=== PATIENT | female | born 1960 | race Caucasian/White ===

== ENCOUNTER 2025-03-15 20:44 | Emergency (ER) | payer BC, SELFPAY ==
[2025-03-15 20:47] VITALS: BP 138/78
[2025-03-15 21:25] VITALS: BMI 25.0
[2025-03-15 21:30] VITALS: BP 127/77
[2025-03-15 21:46] LABS: % Basophils 0.9 % (0-2); % Eosinophils 2.2 % (0-6); % Immature Granulocytes 0.2 % (0-0.5); % Monocytes 8.6 % (1.7-9.3); % Neutrophils 55.1 % (42.2-75.2); Absolute Eosinophils 0.1 10^3/uL (0-0.7); Absolute Lymphocytes 1.5 10^3/uL (1.2-3.4); Absolute Monocytes 0.4 10^3/uL (0.1-0.6); Absolute Neutrophils 2.5 10^3/uL (1.4-6.5); Hematocrit 34.1 % (37.0-47.0); Hemoglobin 11.9 g/dL (12.0-16.0); Mean Corp Hgb Conc. 34.9 g/dL (33.0-37.0); Mean Corpuscular Hgb 31.2 pg (27.0-31.0); Mean Corpuscular Volume 89.5 fL (81.0-99.0); Nucleated Red Blood Cells % 0 %; Platelet Count 243 10^3/uL (130-400); Red Blood Cell Count 3.81 10^6/uL (4.20-5.40); Red Cell Dist. Width 12.2 % (11.5-14.5); White Blood Cell Count 4.5 10^3/uL (4.8-10.8)
--- NOTE | 2025-03-15 21:47 | ED.GENMED ---
History of Present Illness
General
Chief Complaint: Chest Pain
Source: patient
Exam Limitations: none
Time Seen by Provider: 03/15/25 21:44
History of Present Illness
History of Present Illness:
See MDM
Past History
Past History
ED Past Medical History: HTN
ED Past Surgical History: None
Social History
Tobacco: Non-smoker
Alcohol: None
Phy Exam
Physical Exam
Physical Exam:
See MDM
Scores
Heart Score for Chest Pain Patients
STEMI patient?: No
History: Moderately Suspicious
ECG: Nonspecific Repolarization
Age: >/= 65 years
Risk Factors: 1 or 2 Risk Factors
Troponin: </= Normal Limit
Heart Score for Chest Pain Patients: 5
Heart Score Risk: 20.3% MACE over next 6 weeks
Course
Orders/Labs/Results
Orders:
Orders
03/15/25 20:46
ECG [Electrocardiogram (*1)] Urgent
Reason for Study: Chest Pain
EKG- Treatment ONCE
03/15/25 21:21
Cardiac Monitoring- Treatment ONCE
Pulse Ox/spot Check [RESP] Urgent
Quantity: 1
Special Instructions: ON ROOM AIR
03/15/25 21:39
Basic Metabolic Panel Urgent
Complete Blood Count/With Diff Urgent
03/15/25 21:46
CR Chest - 2 Views Urgent
Comment:
Reason For Exam: intermittent chest pain
03/15/25 22:18
Troponin I Urgent
Abnormal Lab Results
03/15/25
21:39
WBC 4.5 L 10^3/uL
(4.8-10.8)
RBC 3.81 L 10^6/uL
(4.20-5.40)
Hgb 11.9 L g/dL
(12.0-16.0)
Hct 34.1 L %
(37.0-47.0)
MCH 31.2 H pg
(27.0-31.0)
Chloride 109 H mmol/L
(98-107)
BUN 26 H mg/dl
(7-17)
Glucose 100 H mg/dl
(70-99)
03/15/25 21:39
03/15/25 21:39
Vital Signs
Initial and Last Documented VS:
Initial Vital Signs
Temp Pulse Resp BP Pulse Ox
98.3 F 80 20 138/78 99
03/15/25 20:47 03/15/25 20:47 03/15/25 20:47 03/15/25 20:47 03/15/25 20:47
Last Documented Vital Signs
Temp Pulse Resp BP Pulse Ox
98.3 F 66 13 108/87 99
03/15/25 20:47 03/15/25 23:19 03/15/25 23:19 03/15/25 23:17 03/15/25 20:47
MDM/Problems Addressed
Differential Diagnosis Includes:
HPI and MDM Narrative:
64-year-old female presenting with intermittent chest pain. She initially noted after walking up the steps. She had a stabbing left-sided chest pain that lasted for a few seconds. Since the exertional chest pain, she has exerted herself with no
reproduction of the pain. She then noted it while she was eating. Again it lasted for a few seconds. She then noticed it while she was sitting down and driving. Again it only lasted for few seconds
Physical exam
General: Well appearing and non-toxic
HEENT: protecting airway
Neck: appears supple
CV: No evidence of cyanosis. Regular rate and rhythm
Resp: No accessory muscle use. Lungs clear
Abd: Non-distended
Extremities: No deformities. No leg edema or tenderness
Neuro: alert
Psych: Normal affect
Skin: Intact
Problems Addressed including Acute and Chronic Conditions affecting care:
1. Intermittent chest pain it does not appear to be
Acuity: acute
Prognosis: stable
Details: It does not appear to be reliably exertional. Will obtain a troponin and chest x-ray
Updates
Chest x-ray clear. Troponin negative. Patient remains symptom-free and feels comfortable going home and understands strict return precautions. Patient placed on cardiac callback.
Differential Diagnosis (but not limited to): Nonexertional chest pain, noncardiac chest pain, ACS
Testing considered: D-dimer but she is neither tachycardic nor hypoxic
Drug therapy (if applicable): OTC meds, please see d/c instruction regarding Rx drugs
Amount and/or Complexity of Data Reviewed
Clinical info obtained from: Patient
External data reviewed: N/A
Labs I independently reviewed (but not limited to): Troponin normal
Radiology: X-ray independently reviewed: Chest x-ray clear
Pulse Ox: not hypoxic
EKG independently reviewed: Sinus rhythm, normal axis, no STEMI
[employer]: sinus rhythm
Critical Care: N/A
Risk of Complication:
Social Determinants of health: Good social support
Discussed with other providers: N/A
Escalation of Care includes Admit/Obs: After being observed in the Emergency Department, pt stable for discharge.
Occasional wrong word or 'sound a like' substitutions may have occurred due to the inherent limitations of voice recognition software. Read the chart carefully and recognize, using context, where substitutions have occurred.
*Critical Care Note
Total Time (30-74mins, 75-104mins- exclusive of procedures): Not Applicable
ED Attending Note
-
Portions of this chart may have been created with voice recognition software.� Occasional wrong word or��sound alike� substitutions may have occurred due to the inherent limitations of voice recognition software.
Discharge Plan
Departure
Patient Disposition: Home (Routine Discharge)
Date of Disposition: 03/15/25
Time of Disposition: 23:28
Patient with high blood pressure during this ER visit?: No
Discharge Problem:
Chest discomfort
Instructions: Chest Pain CBC Follow Up
Prescriptions:
No Action
lisinopril 10 mg Tablet
10 mg PO DAILY
Referrals:
Colin Canales DO [Family Provider] -
Delfino Chapa MD [Active] -
Activity Restrictions/Additional Instructions:
Please return for any worsening symptoms.
You may return at any time if you have further concerns.
Please follow up with your doctor at the first available appointment, preferably this week.
You were placed on the cardiac callback tracker. Someone from their office should call you in the next few days. If you do not hear from them in the next few days, please give them a call.
Thank you for choosing [facility].
Interventions
Interventions:
*Risk Screen - Suicide Last Done: 03/15/25 21:26
*General Assessment Last Done: 03/15/25 20:47
*Neglect/Abuse Screening Last Done: 03/15/25 21:26
*ED- Fall Risk Assessment Last Done: 03/15/25 21:26
*ED COVID-19 Vaccine History Last Done: 03/15/25 21:26
ED- Cardiac Assessment Last Done: 03/15/25 21:45
Discharge Date and Time
Print Language: MONGOLIAN
[2025-03-15 22:00] VITALS: BP 134/78
[2025-03-15 22:04] LABS: Blood Urea Nitrogen 26 mg/dl (7-17); Calcium 9.4 mg/dl (8.4-10.2); Carbon Dioxide 25 mmol/L (22-30); Chloride 109 mmol/L (98-107); Estimated Creatinine Clearance 65 ml/min; Glucose 100 mg/dl (70-99); Sodium 141 mmol/L (135-145); eGFR > 60.00
[2025-03-15 22:48] LABS: Troponin I 0.015 ng/ml
[2025-03-15 23:17] VITALS: BP 108/87
== END 2025-03-15 23:42 | disposition home or self-care (01) ==
LOC: EMR 20:44
PROVIDERS: Emergency Medicine; EMERGENCY PHYSICIAN Student in an Organized Health Care Education/Training Program; FAMILY PHYSICIAN Family Medicine
DX: R07.89 Other chest pain (principal); I10 Essential (primary) hypertension
CPT/HCPCS: 99284; 71046; 80048; 84484; 85025; 93005

== ENCOUNTER → 2025-04-23 11:06 | Outpatient (REF) | payer BC, SELFPAY | LOC: RCS 11:06 | PROVIDERS: ATTENDING PHYSICIAN Internal Medicine Cardiovascular Disease; FAMILY PHYSICIAN Family Medicine | DX: I10 Essential (primary) hypertension (principal); R06.09 Other forms of dyspnea | CPT/HCPCS: 78452; 93017; 93306; A9500 ==